=== PATIENT | male | born 2000 | race Caucasian/White ===

== ENCOUNTER 2024-09-02 20:02 | Emergency (ER) | payer BC, SELFPAY ==
[2024-09-02 20:03] VITALS: BP 165/108
[2024-09-02 20:19] VITALS: BP 170/92
--- NOTE | 2024-09-02 20:29 | ED.GENMED ---
History of Present Illness
General
Chief Complaint: Breathing Problem
Source: patient and family
Exam Limitations: none
Time Seen by Provider: 09/02/24 20:24
History of Present Illness
History of Present Illness:
See MDM
Past History
Past History
ED Past Medical History: Asthma
ED Past Surgical History: None
Social History
Tobacco: Non-smoker
Alcohol: None
Phy Exam
Physical Exam
Physical Exam:
See MDM
Course
Orders/Labs/Results
Orders:
Orders
09/02/24 20:06
ECG [Electrocardiogram (*1)] Urgent
Reason for Study: Tachycardia
EKG- Treatment ONCE
09/02/24 20:28
Dexamethasone Pf [Decadron] 10 mg PO NOW STA
Ipratropium/Albuterol Sulfate [Duoneb] 3 ml INH R NOW STA
09/02/24 20:29
CR Chest - 2 Views Urgent
Comment:
Reason For Exam: cough and wheezing
Vital Signs
Initial and Last Documented VS:
Initial Vital Signs
Temp Pulse Resp BP Pulse Ox
99.4 F 124 22 165/108 92
09/02/24 20:03 09/02/24 20:03 09/02/24 20:03 09/02/24 20:03 09/02/24 20:03
Last Documented Vital Signs
Temp Pulse Resp BP Pulse Ox
99.4 F 114 13 170/92 96
09/02/24 20:03 09/02/24 20:45 09/02/24 20:45 09/02/24 20:19 09/02/24 20:45
MDM/Problems Addressed
Differential Diagnosis Includes:
HPI and MDM Narrative:
24-year-old male presenting with shortness of breath cough and wheezing. This has progressed over the past several hours. Mother at bedside indicating that they were recently around family with dogs. She states dogs are a usual trigger for his
asthma and allergies. Patient ran out of his albuterol. On exam, patient has significant inspiratory and expiratory wheezing throughout. Will give Decadron and start DuoNeb and obtain chest x-ray. Patient states he took a COVID test recently
which was negative
Physical exam
General: Mildly uncomfortable
HEENT: protecting airway
Neck: appears supple
CV: No evidence of cyanosis. Tachycardic
Resp: No accessory muscle use. Diffuse inspiratory and expiratory wheezing throughout
Abd: Non-distended
Extremities: No deformities
Neuro: alert
Psych: Normal affect
Skin: Intact
Problems Addressed including Acute and Chronic Conditions affecting care:
1. Asthma exacerbation
Acuity: acute
Prognosis: stable
Details: Patient given DuoNeb and Decadron. Will obtain chest x-ray to rule out any evidence of pneumonia
Updates
Chest x-ray clear. On reassessment, patient states he is feeling much better. Will write for short steroid burst and refill his albuterol
Differential Diagnosis (but not limited to): Bronchitis, viral syndrome, asthma
Testing considered: COVID and flu test
Drug therapy (if applicable): OTC meds, please see d/c instruction regarding Rx drugs
Amount and/or Complexity of Data Reviewed
Clinical info obtained from: Patient
External data reviewed: N/A
Labs I independently reviewed (but not limited to): N/A
Radiology: X-ray independently reviewed: Chest x-ray clear
Pulse Ox: not hypoxic
EKG independently reviewed: Sinus tachycardia, normal axis, no STEMI
Desulfurizer Machine: N/A
Critical Care: N/A
Risk of Complication:
Social Determinants of health: Good social support
Discussed with other providers: N/A
Escalation of Care includes Admit/Obs: After being observed in the Emergency Department, pt stable for discharge.
Occasional wrong word or 'sound a like' substitutions may have occurred due to the inherent limitations of voice recognition software. Read the chart carefully and recognize, using context, where substitutions have occurred.
*Critical Care Note
Total Time (30-74mins, 75-104mins- exclusive of procedures): Not Applicable
ED Attending Note
-
Portions of this chart may have been created with voice recognition software.� Occasional wrong word or��sound alike� substitutions may have occurred due to the inherent limitations of voice recognition software.
Discharge Plan
Departure
Patient Disposition: Home (Routine Discharge)
Date of Disposition: 09/02/24
Time of Disposition: 22:14
Patient with high blood pressure during this ER visit?: Yes
Discharge Problem:
Asthma attack
Instructions: Asthma, Adult (DC), BLOOD PRESSURE
Prescriptions:
New
prednisone 20 mg tablet
40 mg PO DAILY Qty: 10 0RF
albuterol sulfate 90 mcg/actuation HFA aerosol inhaler
2 puff inhalation Q6H PRN (Reason: shortness of breath or wheezing) Qty: 8.5 0RF
albuterol sulfate 2.5 mg/0.5 mL solution for nebulization
5 mg inhalation Q6H PRN (Reason: shortness of breath or wheezing) Qty: 30 0RF
Referrals:
Kris Chaney DO [Family Provider] -
Activity Restrictions/Additional Instructions:
Please return for any worsening symptoms.
You may return at any time if you have further concerns.
Please follow up with your doctor at the first available appointment, preferably this week.
Thank you for choosing [facility].
Interventions
Interventions:
*Risk Screen - Suicide Last Done: 09/02/24 20:32
*General Assessment Last Done: 09/02/24 20:32
*Neglect/Abuse Screening Last Done: 09/02/24 20:32
ED- Fall Risk Assessment Last Done: 09/02/24 20:33
*ED COVID-19 Vaccine History Last Done: 09/02/24 20:32
ED- Cardiac Assessment Last Done: 09/02/24 20:33
ED- Pulmonary Assessment Last Done: 09/02/24 20:33
Discharge Date and Time
Print Language: [id number]
[2024-09-02 20:31] VITALS: BMI 33.6
[2024-09-02] MEDS: DUONEB 3 ML INH (20:39)
[2024-09-02] MEDS: DECADRON 10 MG PO (20:39)
[2024-09-02 22:15] VITALS: BP 154/83
[2024-09-02 22:30] VITALS: BP 154/83
== END 2024-09-02 22:31 | disposition home or self-care (01) ==
LOC: EMR 20:02
PROVIDERS: EMERGENCY PHYSICIAN Student in an Organized Health Care Education/Training Program; FAMILY PHYSICIAN Family Medicine
DX: J45.901 Unspecified asthma with (acute) exacerbation (principal)
CPT/HCPCS: 99284; 94640; 71046; 93005